=== PATIENT | female | born 1955 | race Caucasian/White ===

== ENCOUNTER 2017-10-05 13:44 | Emergency (ER) | payer OTHER ==
[2017-10-05 14:15] VITALS: BP 120/72; PULSE 67; RESP 20; TEMP 98.5; O2SAT 98
--- NOTE | 2017-10-05 15:16 | RAD ---
PROCEDURE: Radiographs of the right elbow. HISTORY: lateral elbow pain, stuck against object COMPARISON: No prior. FINDINGS: BONES: Bone alignment is normal. There is mild periarticular bone demineralization. There is a cortical step-off in the lateral cortex of the radial head. JOINTS: Normal. No osteoarthritis. SOFT TISSUES: Normal. JOINT EFFUSION: None. OTHER FINDINGS: None. IMPRESSION: Cortical step-off in the lateral cortex of the radial head could represent an acute nondisplaced fracture in the appropriate clinical setting. Please correlate with point tenderness and a radial head view may be obtained for further evaluation.
--- NOTE | 2017-10-05 15:37 | ED PDOC ---
Upper Extremity Pain/Injury Time Seen by Provider: 10/05/17 14:19 Chief Complaint (Nursing): Upper Extremity Problem/Injury Chief Complaint (Provider): Right elbow pain History Per: Patient History/Exam Limitations: no limitations Onset/Duration Of Symptoms: Days Current Symptoms Are (Timing): Still Present Quality: Dull Severity: Moderate Pain Scale Rating Of: 5 Additional Complaint(s): PT states she was stuck on the lateral part of elbow 2 days ago. She has been taking pain but states it is not any better. No numbness/tingling. Past Medical History Reviewed: Historical Data, Nursing Documentation, Vital Signs Vital Signs: Last Vital Signs Temp 98.5 F 10/05/17 14:11 Pulse 67 10/05/17 14:11 Resp 20 10/05/17 14:11 BP 120/72 10/05/17 14:11 Pulse Ox 98 10/05/17 14:11 - Medical History PMH: No Chronic Diseases - Surgical History Surgical History: No Surg Hx - Family History Family History: States: No Known Family Hx - Living Arrangements Living Arrangements: With Family - Social History Current smoker - smoking cessation education provided: No - Allergies Allergies/Adverse Reactions: Allergies Allergy/AdvReac Type Severity Reaction Status Date / Time No Known Allergies Allergy Verified 10/05/17 14:11 Review of Systems ROS Statement: Except As Marked, All Systems Reviewed And Found Negative Constitutional: Negative for: Fever, Chills Musculoskeletal: Positive for: Arm Pain Skin: Negative for: Rash, Bruising Physical Exam - Reviewed Nursing Documentation Reviewed: Yes Vital Signs Reviewed: Yes - Physical Exam Appears: Positive for: Well, Non-toxic, No Acute Distress Head Exam: Positive for: ATRAUMATIC, NORMAL INSPECTION, NORMOCEPHALIC Skin: Positive for: Normal Color, Warm, DRY Eye Exam: Positive for: Normal appearance ENT: Positive for: Normal ENT Inspection Neck: Positive for: Normal, Painless ROM Cardiovascular/Chest: Positive for: Regular Rate, Rhythm Respiratory: Positive for: Normal Breath Sounds. Negative for: Accessory Muscle Use, Respiratory Distress Back: Positive for: Normal Inspection Extremity: Positive for: Normal ROM, Tenderness (Right lateral epicondyle ). Negative for: Deformity, Swelling Neurologic/Psych: Positive for: Alert, Oriented - ECG O2 Sat by Pulse Oximetry: 98 Medical Decision Making Medical Decision Making: Pt reports tenderness of the radial head on re-evaluation. Radial pulses remain 2+ Questionable radial head fx. Pt placed in splint. F/u with orthopedics. Disposition - Clinical Impression Clinical Impression: Radial head fracture - Patient ED Disposition Is Patient to be Admitted: No Counseled Patient/Family Regarding: Diagnosis, Need For Followup - Disposition Referrals: Abelardo Duran III, MD [Staff Provider] - Disposition: Routine/Home Disposition Time: 15:38 Condition: GOOD Additional Instructions: Keep immobilizer on. Follow-up with orthopedics. Instructions: Elbow Fracture (DC)
== END 2017-10-05 16:05 | disposition home or self-care (01) ==
LOC: H.ER 13:44
DX: S52.121A Displaced fracture of head of right radius, initial encounter for closed fracture (principal); W22.8XXA Striking against or struck by other objects, initial encounter